=== PATIENT | female | born 1960 | race Caucasian/White ===

== ENCOUNTER → 2017-02-27 | Outpatient (CLI) | payer MEDICAID ==
--- NOTE | 2017-03-02 13:12 | MM ---
Reason for exam: screening (asymptomatic). Last mammogram was performed 1 year and 2 months ago. History: Patient is postmenopausal. Benign left mammotome panel of the left breast, January 12, 2008. Benign ultrasound-guided core biopsy of the right breast, October 07, 2002. Took hormonal contraceptives for 1 year beginning at age 46. Physical Findings: A clinical breast exam by your physician is recommended on an annual basis and results should be correlated with mammographic findings. MG 3D Screening Mammo W/Cad Bilateral CC and MLO view(s) were taken. Prior study comparison: December 26, 2015, bilateral MG 3d screening mammo w/cad. November 30, 2014, bilateral MG screening mammo w CAD. The breast tissue is heterogeneously dense. This may lower the sensitivity of mammography. Previous mammotome biopsy in the left breast. Asymmetric breast tissue in the right breast inferior position is stable. There is no discrete abnormality. ASSESSMENT: Benign, BI-RAD 2 RECOMMENDATION: Routine screening mammogram of both breasts in 1 year.
== END | disposition home or self-care (01) ==
LOC: RADMAMWWP 07:13
PROVIDERS: ATTEND Obstetrics & Gynecology
DX: Z12.31 Encounter for screening mammogram for malignant neoplasm of breast (principal)
CPT/HCPCS: 77063; G0202

== ENCOUNTER → 2018-03-05 | Outpatient (CLI) | payer MEDICAID ==
--- NOTE | 2018-03-05 12:19 | XR ---
EXAMINATION TYPE: XR foot complete LT, XR ankle complete RT DATE OF EXAM: 03/05/2018 CLINICAL HISTORY: pain TECHNIQUE: Frontal, lateral and oblique images of the left foot are obtained. COMPARISON: None. FINDINGS: There is no acute fracture/dislocation evident. The joint spaces appear within normal ren its. The overlying soft tissue appears unremarkable. IMPRESSION: There is no acute fracture or dislocation. ICD 10 NO FRACTURE, INITIAL EVALUATION EXAMINATION TYPE: XR foot complete LT, XR ankle complete RT DATE OF EXAM: 03/05/2018 COMPARISON: NONE HISTORY: Pain TECHNIQUE: Frontal, lateral and oblique images of the right ankle are obtained. COMPARISON: None. FINDINGS: There is no acute fracture/dislocation evident. The joint spaces appear within normal ren its. The overlying soft tissue appears unremarkable. IMPRESSION: There is no acute fracture or dislocation seen.
== END | disposition home or self-care (01) ==
LOC: RADXRMAIN 11:51
PROVIDERS: ATTEND Podiatrist Foot & Ankle Surgery
DX: M19.072 Primary osteoarthritis, left ankle and foot (principal)

== ENCOUNTER → 2018-06-17 | Outpatient (CLI) | payer MEDICAID ==
--- NOTE | 2018-06-17 09:50 | BD ---
EXAMINATION TYPE: Axial Bone Density DATE OF EXAM: 06/17/2018 COMPARISON: NONE CLINICAL HISTORY: Postmenopausal female. Osteoporosis screening. Height: 5 FT 4 1/4 IN Weight: 208 FRAX RISK QUESTIONS: Family History (Parent hip fracture): YES Secondary Osteoporosis: RISK FACTORS HISTORY OF: Active: YES Postmenopausal woman: AGE 49 If Premenopausal, do you have irregular periods: MEDICATIONS: Thyroid Medications: YES Which medication: SYNTHROID How Lon YEARS , Additional Medications: SYNTHROID, NORVASC, CHOLESTEROL ,MEDS, VIT D , B12 Additional History: EXAM MEASUREMENTS: Bone mineral densitometry was performed using the Penboost System. Bone mineral density as measured about the Lumbar spine is: ----- L1-L4(G/cm2): 1.141 T Score Values are as follows: ----- L2: -0.2 ----- L3: -0.1 ----- L4: -0.8 ----- L1-L4: -0.3 BASELINE Bone mineral density about the R hip (g/cm2): 0.822 Bone mineral density about the L hip (g/cm2): 0.854 T Score values are as follows: -----R Neck: -1.6 -----L Neck: -1.3 -----R Total: -1.5 -----L Total: -1.2 BASELINE IMPRESSION: Osteopenia (T Score between -2.5 and -1). There is slightly increased risk of fracture and the patient may be considered for treatment. Re-Screen 2-5 years. NOTE: T-SCORE=SD OF THE YOUNG ADULT MEAN.
--- NOTE | 2018-06-18 07:57 | MM ---
Reason for exam: screening (asymptomatic). Last mammogram was performed 1 year and 4 months ago. History: Patient is postmenopausal. Benign left mammotome panel of the left breast, January 12, 2008. Benign ultrasound-guided core biopsy of the right breast, October 07, 2002. Took hormonal contraceptives for 1 year beginning at age 46. Physical Findings: A clinical breast exam by your physician is recommended on an annual basis and results should be correlated with mammographic findings. MG 3D Screening Mammo W/Cad Bilateral CC and MLO view(s) were taken. Prior study comparison: February 27, 2017, bilateral MG 3d screening mammo w/cad. December 26, 2015, bilateral MG 3d screening mammo w/cad. The breast tissue is heterogeneously dense. This may lower the sensitivity of mammography. There is chronic nodularity in the right breast. There is no discrete abnormality. No significant changes when compared with prior studies. ASSESSMENT: Benign, BI-RAD 2 RECOMMENDATION: Routine screening mammogram of both breasts in 1 year.
== END | disposition home or self-care (01) ==
LOC: RADMAMWWP 06:44
PROVIDERS: ATTEND Obstetrics & Gynecology
DX: Z12.31 Encounter for screening mammogram for malignant neoplasm of breast (principal); M85.88 Other specified disorders of bone density and structure, other site; Z78.0 Asymptomatic menopausal state
CPT/HCPCS: 77063; 77067; 77080

== ENCOUNTER → 2018-07-16 | Day surgery (SDC) | payer MEDICAID ==
[2018-07-13 10:35] VITALS: BMI 31.6
[~2018-07-16] MED LIST: ALBUTEROL NEBULIZED 2.5 MG/3 ML INHALATION ONE; LACTATED RINGERS 1,000 ML IV SCH; LIDOCAINE 1% 20 ML VIAL (10MG/ML) FOR IV START INTRADERMA PRN; LIDOCAINE 1% INJ 10MG/ML (20 ML MDV) ONE; PROPOFOL 10 MG/ML 20 ML VIAL IV ONE
[2018-07-16 09:59] VITALS: TEMP 97.2
--- NOTE | 2018-07-16 10:41 | P.GSHP ---
History of Present Illness H&P Date: 07/16/18 Chief Complaint: Her, screening Patient today for upper and lower endoscopy. Patient has a history of chronic reflux. Last upper and lower endoscopy 10 years ago. Small hiatal hernia seen at that time. No bowel complaints. Past Medical History Past Medical History: Asthma, GERD/Reflux, Hyperlipidemia, Hypertension, Thyroid Disorder Additional Past Medical History / Comment(s): migraines, TIA 34 yrs ago-no residual effects, hiatal hernia, History of Any Multi-Drug Resistant Organisms: None Reported Past Surgical History: Tonsillectomy, Tubal Ligation, Uterine Ablation Additional Past Surgical History / Comment(s): lipoma removed from left shoulder Past Anesthesia/Blood Transfusion Reactions: Motion Sickness, Postoperative Nausea & Vomiting (PONV) Smoking Status: Never smoker - Past Family History Sister(s) Family Medical History: Cancer Medications and Allergies Home Medications Medication Instructions Recorded Confirmed Type Albuterol Inhaler [Ventolin Hfa 1 puff INHALATION DAILY PRN 07/13/18 07/16/18 History Inhaler] Aspirin [Adult Low Dose Aspirin EC] 81 mg PO DAILY 07/13/18 07/16/18 History Calcium + Vitamin D 3 1 tab PO DAILY 07/13/18 07/16/18 History Desloratadine [Clarinex] 5 mg PO DAILY 07/13/18 07/16/18 History Ergocalciferol (Vitamin D2) 50,000 unit PO SUTH 07/13/18 07/16/18 History [Vitamin D2] Fluticasone Nasal [place] [Flonase 1 spray EA NOSTRIL DAILY 07/13/18 07/16/18 History Nasal [place]] Levothyroxine Sodium [Synthroid] 50 mcg PO DAILY 07/13/18 07/16/18 History Omeprazole [PriLOSEC] 20 mg PO AC-BRKFST 07/13/18 07/16/18 History Rosuvastatin Calcium [Crestor] 10 mg PO DAILY 07/13/18 07/16/18 History Sertraline [Zoloft] 25 mg PO DAILY 07/13/18 07/16/18 History amLODIPine [Norvasc] 10 mg PO DAILY 07/13/18 07/16/18 History Allergies Allergy/AdvReac Type Severity Reaction Status Date / Time No Known Allergies Allergy Unverified 07/16/18 09:40 Surgical - Exam Vital Signs Temp Pulse Resp BP Pulse Ox 97.2 F L 84 16 131/86 97 07/16/18 09:48 07/16/18 09:48 07/16/18 09:48 07/16/18 09:48 07/16/18 09:48 Physical exam: General: Well-developed, well-nourished HEENT: Normocephalic, sclerae nonicteric Abdomen: Nontender, nondistended Extremities: No edema Neuro: Alert and oriented Assessment and Plan (1) Colon cancer screening Narrative/Plan: Will proceed with upper and lower endoscopy at this time. Current Visit: Yes Status: Acute Code(s): Z12.11 - ENCOUNTER FOR SCREENING FOR MALIGNANT NEOPLASM OF COLON SNOMED Code(s): 945601063
--- NOTE | 2018-07-16 11:00 | P.PCN ---
Date of Procedure: 07/16/18 Procedure(s) Performed: PREOPERATIVE DIAGNOSIS: GERD, screening POSTOPERATIVE DIAGNOSIS: Mild gastritis, small hiatal hernia, gastric polyps, normal colon PROCEDURE: 1. EGD with biopsy 2. Colonoscopy ANESTHESIA: MAC SURGEON: Karl eKnnedy M.D. SPECIMENS: Antrum, gastric polyps ENDOSCOPIC PROCEDURE: The patient was on the endoscopy table in the left decubitus position. The Olympus gastroscope was inserted into the oropharynx and passed under direct visualization to the region of the third portion of the duodenum. From that point the scope was slowly withdrawn inspecting all surfaces carefully. There were no neoplastic inflammatory or polypoid lesions throughout the duodenum. The pylorus was widely patent. The stomach was carefully inspected. There was mild gastritis present. A biopsy of the antrum took place to rule out H. pylori. Retroflexion was insufficient to visualize the hiatus because of the flexibility within the scope. We did visualize multiple small gastric polyps which were sampled. None of these were larger than 1 cm. The scope was withdrawn into the proximal stomach. There did appear to be a small hiatal hernia. The GE junction was present 2-3 cm above the diaphragmatic hiatus. The esophagus was then carefully examined. There were no neoplastic inflammatory or polypoid lesions throughout the visualized esophagus. The patient was kept on the endoscopy table in the left decubitus position. The Olympus colonoscope was inserted into the anus and passed under direct visualization to the base of the cecum. The appendiceal orifice was visualized. From that point the scope was slowly withdrawn inspecting all surfaces carefully. There were no neoplastic inflammatory or polypoid lesions throughout the cecum, ascending, transverse, descending, sigmoid and rectum. There was no visible diverticulosis noted. Digital rectal examination was normal. The patient was taken to the recovery room in stable condition per anesthesia guidelines. RECOMMENDATIONS: Increase fiber. Continue antiacids. Follow-up colonoscopy 10 years.
[2018-07-16 11:28] VITALS: RESP 16
[2018-07-16 11:40] VITALS: BP 123/76; PULSE 75
== END | disposition home or self-care (01) ==
LOC: ORWHC2ENDO 09:23
PROVIDERS: ATTEND Surgery
DX: Z12.11 Encounter for screening for malignant neoplasm of colon (principal); K29.50 Unspecified chronic gastritis without bleeding; K31.7 Polyp of stomach and duodenum; K44.9 Diaphragmatic hernia without obstruction or gangrene; J45.909 Unspecified asthma, uncomplicated; I10 Essential (primary) hypertension; E78.5 Hyperlipidemia, unspecified; E07.9 Disorder of thyroid, unspecified; K21.9 Gastro-esophageal reflux disease without esophagitis; Z79.82 Long term (current) use of aspirin; Z86.73 Personal history of transient ischemic attack (TIA), and cerebral infarction without residual deficits; Z79.890 Hormone replacement therapy; Z79.899 Other long term (current) drug therapy
CPT/HCPCS: 88305; 43239; J2001; J2704; G0121

== ENCOUNTER → 2018-11-05 | Outpatient (CLI) | payer MEDICAID ==
[2018-11-05 07:30] LABS: Basophils % (A) 0 %; Eosinophils # (A) 0.3 k/uL (0-0.7); Eosinophils % (A) 3 %; HCT 41.3 % (34.0-46.0); HGB 13.5 gm/dL (11.4-16.0); Lymphocytes # (A) 1.8 k/uL (1.0-4.8); Lymphocytes % (A) 22 %; MCH 26.9 pg (25.0-35.0); MCHC 32.7 g/dL (31.0-37.0); MCV 82.3 fL (80.0-100.0); Monocytes # (A) 0.5 k/uL (0-1.0); Monocytes % (A) 6 %; Neutrophils # (A) 5.4 k/uL (1.3-7.7); Neutrophils % (A) 67 %; Platelet Count 238 k/uL (150-450); RBC 5.02 m/uL (3.80-5.40); RDW 14.3 % (11.5-15.5)
[2018-11-05 11:54] LABS: Albumin 4.2 g/dL (3.80-4.90); Albumin/Globulin Ratio 2.33 (1.60-3.17); Anion Gap 9.1 mmol/L (4.00-12.00); Calcium 9.7 mg/dL (8.7-10.3); Carbon Dioxide 28.9 mmol/L (21.6-31.8); Globulin 1.8 g/dL (1.6-3.3); LDL Cholesterol,Calculated 76.6 mg/dL (0.0-131.0); Potassium 3.6 mmol/L (3.5-5.5); Total Bilirubin 1.2 mg/dL (0.2-1.2); VLDL Calculation 35.4 mg/dL (5.00-40.00)
[2018-11-05 11:58] LABS: Vitamin D 25 Hydroxy 87.4 ng/mL (30.0-100.0)
== END | disposition home or self-care (01) ==
LOC: LABWHC1 07:03
PROVIDERS: ATTEND Nurse Practitioner
DX: E78.5 Hyperlipidemia, unspecified (principal); E03.9 Hypothyroidism, unspecified; E55.9 Vitamin D deficiency, unspecified; E53.8 Deficiency of other specified B group vitamins; I10 Essential (primary) hypertension
CPT/HCPCS: 36415; 80053; 80061; 82306; 82607; 84443; 85025

== ENCOUNTER → 2018-11-18 | Outpatient (CLI) | payer MEDICAID, BC ==
--- NOTE | 2018-11-19 07:55 | CT ---
EXAMINATION TYPE: CT chest wo/w con DATE OF EXAM: 11/18/2018 COMPARISON: None HISTORY: Chronic cough, mild intermittent asthma for several years. Pt being treated for asthma, pt s tates medication not alleviating symptoms CT DLP: 930.6 mGycm, Automated exposure control for dose reduction was used. CONTRAST: Performed injected with 100 mL of Isovue 300. TECHNIQUE: Axial images were obtained at 5 mm thick sections. Reconstructed images are reviewed on [employer] (powering [employer]) computer in the coronal plane. Images are performed pre and postcontrast. FINDINGS: Portion of the thyroid visualized is normal. No suspicious lung nodules or focal infiltrates are present. No peribronchial thickening is evident. No bronchiectasis is evident. No suspicious infiltrates. No enlarged mediastinal or hilar adenopathy is evident. The ascending aorta diameter at the level o f the main pulmonary artery is 3.7 cm. The main pulmonary artery diameter at the bifurcation is 2.5 cm. Following contrast administration, no suspicious enhancement is evident. Limited CT sections are obtained through the upper abdomen. There is a small hiatal hernia. Peripelvic cysts are suspected within the left kidney. Hydronephrosis could be considered. Delayed images are not obtained. Abdomen is otherwise essentially unremarkable . IMPRESSIONS: 1. No suspicious acute or chronic chest CT findings
== END | disposition home or self-care (01) ==
LOC: RADCTMAIN 16:40
PROVIDERS: ATTEND Family Medicine
DX: J45.21 Mild intermittent asthma with (acute) exacerbation (principal)
CPT/HCPCS: 71270; Q9967

== ENCOUNTER → 2019-01-14 | Outpatient (CLI) | payer MEDICAID, BC ==
[2019-01-14 08:05] LABS: HCT 41.4 % (34.0-46.0); HGB 13.7 gm/dL (11.4-16.0); MCHC 33.2 g/dL (31.0-37.0); MCV 84.4 fL (80.0-100.0); Mean Platelet Volume 7.8; Platelet Count 234 k/uL (150-450); RDW 14.2 % (11.5-15.5); WBC 6.6 k/uL (3.8-10.6)
[2019-01-14 18:26] LABS: African American GFR (CKD) 92.9 (60.0-200.0); Albumin 4.6 g/dL (3.80-4.90); Albumin/Globulin Ratio 2.56 (1.60-3.17); Anion Gap 9.8 mmol/L (4.00-12.00); Calcium 9.6 mg/dL (8.7-10.3); Carbon Dioxide 29.2 mmol/L (21.6-31.8); Globulin 1.8 g/dL (1.6-3.3); LDL Cholesterol,Calculated 89.6 mg/dL (0.0-131.0); Potassium 3.8 mmol/L (3.5-5.5); Total Bilirubin 1.3 mg/dL (0.3-1.2); Total Protein 6.4 g/dL (6.2-8.2); VLDL Calculation 32.4 mg/dL (5.00-40.00)
== END ==
LOC: LABWHC1 07:26
PROVIDERS: ATTEND Nurse Practitioner
DX: E78.5 Hyperlipidemia, unspecified (principal); I10 Essential (primary) hypertension; R53.82 Chronic fatigue, unspecified; E03.9 Hypothyroidism, unspecified
CPT/HCPCS: 36415; 80053; 80061; 84443; 85027

== ENCOUNTER → 2019-07-01 | Outpatient (CLI) | payer MEDICAID, BC ==
[2019-07-01 07:34] LABS: Basophils # (A) 0.1 k/uL (0-0.2); Basophils % (A) 1 %; Eosinophils # (A) 0.2 k/uL (0-0.7); Eosinophils % (A) 3 %; HCT 46.3 % (34.0-46.0); HGB 14.9 gm/dL (11.4-16.0); Lymphocytes # (A) 1.4 k/uL (1.0-4.8); Lymphocytes % (A) 20 %; MCH 27.3 pg (25.0-35.0); MCHC 32.1 g/dL (31.0-37.0); Mean Platelet Volume 8.4; Monocytes # (A) 0.4 k/uL (0-1.0); Monocytes % (A) 6 %; Neutrophils # (A) 4.7 k/uL (1.3-7.7); Neutrophils % (A) 68 %; Platelet Count 237 k/uL (150-450); RBC 5.45 m/uL (3.80-5.40); RDW 13.4 % (11.5-15.5)
[2019-07-01 12:18] LABS: Albumin 4.7 g/dL (3.80-4.90); Albumin/Globulin Ratio 2.35 (1.60-3.17); Anion Gap 11.6 mmol/L (4.00-12.00); BUN/Creat Ratio 18.89 Ratio (12.00-20.00); Calcium 9.4 mg/dL (8.7-10.3); Carbon Dioxide 27.4 mmol/L (21.6-31.8); Chol/HDL Ratio 2.93; LDL Cholesterol,Calculated 84.6 mg/dL (0.0-131.0); Potassium 3.5 mmol/L (3.5-5.5); Total Bilirubin 1.4 mg/dL (0.2-1.2); Total Protein 6.7 g/dL (6.2-8.2); VLDL Calculation 29.4 mg/dL (5.00-40.00)
== END | disposition home or self-care (01) ==
LOC: LABWHC1 07:01
PROVIDERS: ATTEND Nurse Practitioner
DX: Z00.00 Encounter for general adult medical examination without abnormal findings (principal); E78.5 Hyperlipidemia, unspecified; E03.9 Hypothyroidism, unspecified; Z13.0 Encounter for screening for diseases of the blood and blood-forming organs and certain disorders involving the immune mechanism; Z13.1 Encounter for screening for diabetes mellitus
CPT/HCPCS: 36415; 80053; 80061; 84443; 85025

== ENCOUNTER → 2019-07-08 | Outpatient (CLI) | payer MEDICAID, BC ==
--- NOTE | 2019-07-08 07:34 | US ---
EXAMINATION TYPE: US abdomen limited DATE OF EXAM: 07/08/2019 COMPARISON: US 01/20/2013, CT 08/22/2015 CLINICAL HISTORY: R10.11 RUQ Abd pain. Pain and nausea on and off EXAM MEASUREMENTS: Liver Length: 14.9 cm Gallbladder Wall: 0.27 cm CBD: 0.3 cm Right Kidney: 10.0 x 4.6 x 5.2 cm Pancreas: Tail obscured by overlying bowel gas, visualized portions unremarkable Liver: Slightly heterogeneous Gallbladder: Multiple stones with shadowing visualized Evidence for sonographic Hughes's sign: No CBD: wnl as visualized, distal portion obscured by bowel gas Right Kidney: No hydronephrosis or masses seen On current study there are new few shadowing mobile gallstones within gallbladder lumen. No perichole cystic fluid or abnormal gallbladder wall thickening. There is background mild diffuse fatty infiltra tion of liver. IMPRESSION: New visualization of gallstones without secondary ultrasound evidence for acute cholecyst itis. Consider HIDA scan evaluation based on degree of clinical suspicion in patient with right upper quadrant pain. Persistent mild fatty infiltration of liver noted.
== END | disposition home or self-care (01) ==
LOC: RADUSWWP 07:00
PROVIDERS: ATTEND Family Medicine
DX: K80.20 Calculus of gallbladder without cholecystitis without obstruction (principal); K76.0 Fatty (change of) liver, not elsewhere classified
CPT/HCPCS: 76705

== ENCOUNTER → 2019-07-20 | Outpatient (CLI) | payer MEDICAID, BC ==
--- NOTE | 2019-07-21 12:21 | MM ---
Reason for exam: screening (asymptomatic). Last mammogram was performed 1 year and 1 month ago. History: Patient is postmenopausal. Benign left mammotome panel of the left breast, January 12, 2008. Benign ultrasound-guided core biopsy of the right breast, October 07, 2002. Took hormonal contraceptives for 1 year beginning at age 46. Physical Findings: A clinical breast exam by your physician is recommended on an annual basis and results should be correlated with mammographic findings. MG 3D Screening Mammo W/Cad Bilateral CC and MLO view(s) were taken. Prior study comparison: June 17, 2018, bilateral MG 3d screening mammo w/cad. February 27, 2017, bilateral MG 3d screening mammo w/cad. The breast tissue is heterogeneously dense. This may lower the sensitivity of mammography. There is a stable right lower inner quadrant middle depth mass. No suspicious abnormality. Left biopsy marker noted. No significant changes when compared with prior studies. ASSESSMENT: Benign, BI-RAD 2 RECOMMENDATION: Routine screening mammogram of both breasts in 1 year.
== END | disposition home or self-care (01) ==
LOC: RADMAMWWP 06:56
PROVIDERS: ATTEND Obstetrics & Gynecology
DX: Z12.31 Encounter for screening mammogram for malignant neoplasm of breast (principal)
CPT/HCPCS: 77063; 77067

== ENCOUNTER → 2020-11-02 | Outpatient (CLI) | payer MEDICAID ==
--- NOTE | 2020-11-07 10:10 | MM ---
Reason for exam: screening (asymptomatic). Last mammogram was performed 1 year and 4 months ago. History: Patient is postmenopausal. Benign left mammotome panel of the left breast, January 12, 2008. Benign ultrasound-guided core biopsy of the right breast, October 07, 2002. Took hormonal contraceptives for 1 year beginning at age 46. Physical Findings: A clinical breast exam by your physician is recommended on an annual basis and results should be correlated with mammographic findings. MG 3D Screening Mammo W/Cad Bilateral CC and MLO view(s) were taken. Prior study comparison: July 20, 2019, bilateral MG 3d screening mammo w/cad. June 17, 2018, bilateral MG 3d screening mammo w/cad. There are scattered fibroglandular densities. ASSESSMENT: Benign, BI-RAD 2 RECOMMENDATION: Routine screening mammogram of both breasts in 1 year.
== END | disposition home or self-care (01) ==
LOC: RADMAMWWP 12:33
PROVIDERS: ATTEND Obstetrics & Gynecology
DX: Z12.31 Encounter for screening mammogram for malignant neoplasm of breast (principal); Z78.0 Asymptomatic menopausal state
CPT/HCPCS: 77063; 77067

== ENCOUNTER → 2022-04-24 | Outpatient (CLI) | payer OTHER ==
--- NOTE | 2022-04-25 07:45 | MM ---
Reason for Exam: Screening (asymptomatic). Last mammogram was performed 1 year(s) and 6 month(s) ago. Patient History: Menarche at age 11. First Full-Term at age 20. Postmenopausal. Hormonal Contraceptives for 1 year from age 46 until age 47. 01/12/2008, Benign Core Biopsy on the left side. 10/07/2002, Benign Ultrasound-Guided Core Biopsy on the right side. Risk Values: Anabela 5 year model risk: 2.2%. NCI Lifetime model risk: 8.6%. Prior Study Comparison: 06/17/2018 Bilateral Screening Mammogram, [facility]. 07/20/2019 Bilateral Screening Mammogram, [facility]. 11/02/2020 Bilateral Screening Mammogram, [facility]. Tissue Density: The breast tissue is heterogeneously dense. This may lower the sensitivity of mammography. Findings: Analyzed By CAD. There is no suspicious group of microcalcifications or new suspicious mass in either breast. Overall Assessment: Benign, BI-RAD 2 Management: Screening Mammogram of both breasts in 1 year. A clinical breast exam by your physician is recommended on an annual basis and results should be correlated with mammographic findings. Electronically signed and approved by: Trever Bazzi M.D. Radiologis
== END | disposition home or self-care (01) ==
LOC: RADMAMWWP 15:50
PROVIDERS: ATTEND Family Medicine
DX: Z12.31 Encounter for screening mammogram for malignant neoplasm of breast (principal); Z78.0 Asymptomatic menopausal state; Z98.890 Other specified postprocedural states
CPT/HCPCS: 77063; 77067

== ENCOUNTER → 2023-03-23 | Outpatient (CLI) | payer MEDICARE, OTHER ==
--- NOTE | 2023-03-23 13:10 | CT ---
EXAMINATION TYPE: CT chest w con CT DLP: 422.80 mGycm, Automated exposure control for dose reduction was used. DATE OF EXAM: 03/23/2023 1:[address] chest 11/18/2018 CLINICAL INDICATION:Female, 62 years old with history of J45.40 MODERATE PERSISTENT ASTHMA, UNCOMPLIC ATED; PHH, MODERATE PERSISTENT ASTHMA, ISO 300 100ML. SCANNED BY SO/AH TECHNIQUE: Multiple axial images were obtained through the chest following the administration of 100 cc of Isovue 300. . Coronal and sagittal reformats reviewed. FINDINGS: LUNGS/ PLEURA: No pleural effusion, pneumothorax, focal consolidation. No suspicious pulmonary nodule or mass. AIRWAY: Patent and unremarkable.. HEART: Size within normal limits. No pericardial effusion. MEDIASTINUM: No gross evidence of adenopathy. VASCULATURE: No aortic aneurysm. MUSCULOSKELETAL: No acute osseous abnormalities SOFT TISSUES/LYMPH NODES: Unremarkable. LOWER NECK: No significant findings. UPPER ABDOMEN: Small to moderate hiatal hernia. Cholelithiasis demonstrated. Left renal parapelvic cy sts. IMPRESSION: 1. No acute thoracic process. 2. Small to moderate hiatal hernia, increased from prior exam. 3. Cholelithiasis.
== END | disposition home or self-care (01) ==
LOC: RADCTMAIN 12:37
PROVIDERS: ATTEND Internal Medicine Critical Care Medicine
DX: J45.40 Moderate persistent asthma, uncomplicated (principal); K44.9 Diaphragmatic hernia without obstruction or gangrene; K80.20 Calculus of gallbladder without cholecystitis without obstruction
CPT/HCPCS: 71260; 36415; Q9967

== ENCOUNTER 2023-04-01 12:12 | Day surgery (SDC) | payer MEDICARE, OTHER ==
[2023-03-26 15:34] VITALS: BMI 34.4
[~2023-04-01 12:12] MED LIST changes: -ALBUTEROL NEBULIZED 2.5 MG/3 ML INHALATION ONE; +ATROPINE SULFATE 0.4 MG/ML 1 ML VIAL IM ONE; -LIDOCAINE 1% 20 ML VIAL (10MG/ML) FOR IV START INTRADERMA PRN; -LIDOCAINE 1% INJ 10MG/ML (20 ML MDV) ONE; -PROPOFOL 10 MG/ML 20 ML VIAL IV ONE
[2023-04-01 13:06] VITALS: TEMP 97.8
[2023-04-01] MEDS ORDERED: LIDOCAINE 1% INJ 10MG/ML (20 ML MDV) ONE (13:14)
[2023-04-01] MEDS ORDERED: MIDAZOLAM 2 MG/2 ML VIAL ONE (13:14)
[2023-04-01] MEDS ORDERED: KETAMINE HCL IN 0.9 % NACL 50 MG/5 ML SYRINGE ONE (13:14)
[2023-04-01] MEDS ORDERED: fentaNYL (PF) 50 MCG/ML 2 ML AMP ONE (13:14)
[2023-04-01] MEDS ORDERED: PROPOFOL 10 MG/ML 20 ML VIAL IV ONE (13:14)
[2023-04-01] MEDS ORDERED: LIDOCAINE 2% INJ 20 MG/ML INTRATRACH ONE (13:24)
[2023-04-01 13:46] VITALS: PULSE 74; RESP 16
[2023-04-01 14:06] VITALS: BP 123/74
--- NOTE | 2023-04-01 14:34 | PCN ---
PROCEDURE NOTE PROCEDURES PERFORMED: Bronchoscopy, airway examination, therapeutic lavage, bronchoalveolar lavage right middle lobe. PREOPERATIVE DIAGNOSIS: Chronic cough. POSTOPERATIVE DIAGNOSIS: Chronic cough. INFORMED CONSENT: There was informed consent and universal timeout. SHIPPING AND RECEIVING OPERATOR: Dr. Nava Gregorio. The patient's procedure took place in [facility], room #1. UPHOLSTERY ESTIMATOR provided general anesthesia along with the Anesthesia Services. After the patient was adequately sedated and being fully monitored, the bronchoscope was inserted through the right nostril. It passed through the right nasopharynx into the oropharynx. The hypopharynx was identified and topicalized. The hypopharyngeal structures, including anterior commissure, true cords, false cords, arytenoids, piriform sinuses, right and left; vallecula, and epiglottis all appeared normal. The glottic opening was topicalized. The bronchoscope was pushed through the glottic opening into the trachea. There was a mild degree of tracheomalacia. The trachea itself was normal. Tracheal jae was sharp. The right and left mainstem were topicalized. The right upper lobe was bifurcated, but otherwise normal. The right middle lobe and the right lower lobe were normal and that the right middle lobe had 2 segments and the right lower lobe had 5 segments. The left upper lobe proper had 2 segments, the lingula had 2 segments and the left lower lobe had 4 segments, all of the findings were consistent throughout included mild to moderate bronchitis. There was no dominant mass or tumor. There was some mild mucosal friability. The bronchoscope was then wedged into the right middle lobe. A formal BAL was obtained. A 30 mL of fluid was recovered. The patient tolerated the procedure well without complication. The bronchoscope was withdrawn. The patient will be recovered. The fluid was sent to laboratory for analysis. MMODL / IJN: [id number] /
[2023-04-02 05:50] LABS: Appearance,BF Slightly Hazy (Clear); RBC, Body Fluid 150 /UL (0-2000)
[2023-04-02 10:47] LABS: Nucleated Cells, Body Fluid 14 /UL
== END 2023-04-01 14:31 | disposition home or self-care (01) ==
LOC: ORWHC2ENDO 12:12
PROVIDERS: ATTEND Internal Medicine Critical Care Medicine
DX: J39.8 Other specified diseases of upper respiratory tract (principal); J45.40 Moderate persistent asthma, uncomplicated; I10 Essential (primary) hypertension; K21.9 Gastro-esophageal reflux disease without esophagitis; E78.5 Hyperlipidemia, unspecified; E03.9 Hypothyroidism, unspecified; Z86.16 Personal history of COVID-19; Z79.890 Hormone replacement therapy; Z79.899 Other long term (current) drug therapy; Z79.51 Long term (current) use of inhaled steroids
CPT/HCPCS: 88108; 88305; 89050; 87070; 87205; 87116; 87102; 87206; 31624; J2001 ×2; J2250; J3010; J2704

== ENCOUNTER → 2023-05-11 | Outpatient (CLI) | payer MEDICARE, OTHER | END | disposition home or self-care (01) | LOC: LABWHC1 10:58 | PROVIDERS: ATTEND Internal Medicine Critical Care Medicine | DX: J45.909 Unspecified asthma, uncomplicated (principal) | CPT/HCPCS: 36415; 82785; 85008 ==

== ENCOUNTER → 2023-05-11 | Outpatient (CLI) | payer OTHER, MEDICARE ==
--- NOTE | 2023-05-12 12:27 | MM ---
Reason for Exam: Screening (asymptomatic). Last screening mammogram was performed 12 month(s) ago. Patient History: Menarche at age 11. First Full-Term at age 20. Postmenopausal. Hormonal Contraceptives for 1 year from age 46 until age 47. 01/12/2008, Benign Core Biopsy on the left side. 10/07/2002, Benign Ultrasound-Guided Core Biopsy on the right side. Risk Values: Anabela 5 year model risk: 2.2%. NCI Lifetime model risk: 8.3%. Prior Study Comparison: 07/20/2019 Bilateral Screening Mammogram, [facility]. 11/02/2020 Bilateral Screening Mammogram, [facility]. 04/24/2022 Bilateral MG 3D screening mammo w/cad, [facility]. Tissue Density: The breast tissue is heterogeneously dense. This may lower the sensitivity of mammography. Findings: Analyzed By CAD. There is no suspicious group of microcalcifications or new suspicious mass in either breast. Overall Assessment: Benign, BI-RAD 2 Management: Screening Mammogram of both breasts in 1 year. . Patient should continue monthly self-breast exams. A clinical breast exam by your physician is recommended on an annual basis. This exam should not preclude additional follow-up of suspicious palpable abnormalities. Note on Anabela scores and lifetime risk: 1. A Anabela score greater than 3% is considered moderate risk. If this is the case, consider specialist referral to assess eligibility for a risk reducing agent. 2. If overall lifetime risk for the development of breast cancer is 20% or higher, the patient may qualify for future screening with alternating mammogram and breast MRI. Electronically signed and approved by: Trever Bazzi M.D. Radiologis
== END | disposition home or self-care (01) ==
LOC: RADMAMWWP 10:28
PROVIDERS: ATTEND Nurse Practitioner Family
DX: Z12.31 Encounter for screening mammogram for malignant neoplasm of breast (principal); Z78.0 Asymptomatic menopausal state
CPT/HCPCS: 77063; 77067